=== PATIENT | male | born 1965 | race Two or more races ===

== ENCOUNTER 2017-05-21 18:42 | Emergency (ER) | payer MEDICAID ==
[~2017-05-21] VITALS: Ht 188 cm; Wt 104.3 kg
[~2017-05-21 18:42] MED LIST: UNOBMED
[2017-05-21] MEDS ORDERED: Mylanta II UD 30ml ORAL ONE (18:45)
[2017-05-21] MEDS ORDERED: Lidocaine 2% Visc 15ml soln ORAL ONE (18:45)
--- NOTE | 2017-05-21 18:49 | Emergency Room Report ---
History of Present Illness General Chief Complaint: Alcohol Intoxication Source: Patient, EMS Present Illness HPI 51YOM BIBEMS for ETOH, chest pain Drank "the whole store" worth of Susanna all day today because he "has pains in his feet" and susanna helps. EMS states they are always at his house for "him or his brother" drinking ETOH excessively Denies any drug use Had chest pain "all day, before I started drinking." States had some vomiting then substernal chest pain as well Questionable timeframe given patient very intoxicated currently Denies PMHx Denies taking medication Allergies: Coded Allergies: UNABLE TO ASSESS (Unverified , 10/08/14) Patient History Past Medical History: none Past Surgical History: none Pertinent Family History: none Social History: Reports: alcohol use Immunizations: UTD Reviewed Nursing Documentation: PMH: Agreed, PSxH: Agreed Nursing Documentation-PMH Hx Hypertension: Yes Review of Systems All Other Systems: negative except mentioned in HPI Physical Exam Vital Signs Date Time Temp Pulse Resp B/P (MAP) Pulse Ox O2 Delivery O2 Flow Rate FiO2 05/21/17 18:41 98.2 72 18 158/98 99 Room Air Sp02 EP Interpretation: reviewed, normal General Appearance: normal inspection, well appearing, no apparent distress, alert, GCS 15, non-toxic, other - +AOB Head: normocephalic, atraumatic Eyes: bilateral eye PERRL, bilateral eye EOMI ENT: normal ENT inspection, hearing grossly normal, normal voice Neck: normal inspection, full range of motion, supple, no bony tend Respiratory: normal inspection, lungs clear, normal breath sounds, no respiratory distress, no retraction, no accessory muscle use, no wheezing, speaking full sentences, chest symmetrical, palpation of chest normal Cardiovascular #1: regular rate, rhythm, no edema Gastrointestinal: normal inspection, normal bowel sounds, soft, no guarding, no hernia, other - TTP epigastrium Genitourinary: no CVA tenderness Musculoskeletal: normal inspection, back normal, normal range of motion, Maye' s Sign negative Neurologic: normal inspection, alert, oriented x3, responsive, analysis mgr III-XII nml as tested, motor strength/tone normal, speech normal Psychiatric: normal inspection, judgement/insight normal, mood/affect normal Skin: normal inspection, normal color, no rash Lymphatic: normal inspection Medical Decision Making Diagnostic Impression: Primary Impression: Acute alcoholic intoxication Qualified Codes: F10.929 - Alcohol use, unspecified with intoxication, unspecified Additional Impressions: Chest pain Qualified Codes: R07.9 - Chest pain, unspecified Epigastric pain Alcoholic gastritis Qualified Codes: K29.20 - Alcoholic gastritis without bleeding ER Course CXR negative for PTX, perforation/free air No ttp/ crepitus to chest Lungs CTAB ECG is NSR, no ischemia ETOH gastritis, given epigastric pain, daily ETOH improved with GI Cocktail Tolerating PO Observed in ER for 2 hours, patient slept No sober, ambulating with steady gait DC home EKG Diagnostic Results Rate: normal Rhythm: NSR ST Segments: no acute changes Rhythm Strip Diag. Results EP Interpretation: yes Rate: 75 Rhythm: NSR, no PVC's, no ectopy Chest X-Ray Diagnostic Results Chest X-Ray Diagnostic Results : Chest X-Ray Ordered: Yes # of Views/Limited/Complete: 1 View Indication: Chest Pain EP Interpretation: Yes Interpretation: no consolidation, no effusion, no pneumothorax, no acute cardiopulmonary disease Impression: No acute disease Electronically Signed by: Dr Javi Rubio MD Last Vital Signs Date Time Temp Pulse Resp B/P (MAP) Pulse Ox O2 Delivery O2 Flow Rate FiO2 05/21/17 18:41 98.2 72 18 158/98 99 Room Air Status: improved Disposition: HOME, SELF-CARE JAVI RUBIO M.D. May 21, 2017 18:49
[2017-05-21 20:43] VITALS: BP 126/86
[2017-05-21 21:28] VITALS: BP 126/86
--- NOTE | 2017-05-22 09:10 | Diagnostic Imaging Report ---
Indication: Chest pain Technique: XRAY CHEST 1 V Comparison: None. Findings: The cardiomediastinal silhouette is normal. The lungs are clear. There is no evidence of pleural fluid. The bones are unremarkable. Impression: Normal chest.
--- NOTE | 2017-05-24 18:44 | Cardiology Report ---
APPROVED REPORT EKG Measurement Heart [id number] Normal sinus rhythm Nonspecific ST abnormality Abnormal ECG
== END 2017-05-21 21:30 | disposition home or self-care (01) ==
LOC: EDBD 18:42 → EMR 19:15
DX: F10.129 Alcohol abuse with intoxication, unspecified (principal); R07.9 Chest pain, unspecified; K29.20 Alcoholic gastritis without bleeding
CPT/HCPCS: 71010; 93005; 99283

== ENCOUNTER 2017-11-28 21:01 | Emergency (ER) | payer MEDICAID ==
[~2017-11-28] VITALS: Ht 188 cm; Wt 102.1 kg
[2017-11-28 21:05] VITALS: BP 150/91
--- NOTE | 2017-11-28 21:06 | Emergency Room Report ---
History of Present Illness General Chief Complaint: Alcohol Intoxication Source: Patient, Medical Record, EMS Present Illness HPI This is a 52-year-old male with a history of colon abuse. He also has history of chronic pain for which she medicated with alcohol. Per EMS had been out to his placed multiple times. Patient called 911 because of generalized body pain. Also admitted to drinking heavily today. No fever chills but no nausea no vomiting. Pain is 10 out of 10. No other complaint. No trauma. No fever. Allergies: Coded Allergies: No Known Allergies (Unverified , 11/28/17) UNABLE TO ASSESS (Unverified , 10/08/14) Patient History Past Medical History: see triage record, old chart reviewed Past Surgical History: other Pertinent Family History: none Social History: Reports: alcohol use Immunizations: other Reviewed Nursing Documentation: PMH: Agreed, PSxH: Agreed Nursing Documentation-PMH Hx Hypertension: Yes Review of Systems Eye: Denies: eye pain, blurred vision ENT: Denies: ear pain, nose congestion, throat swelling Respiratory: Denies: cough, shortness of breath Cardiovascular: Denies: chest pain, palpitations Gastrointestinal: Denies: abdominal pain, diarrhea, nausea, vomiting Musculoskeletal: Reports: muscle pain, Denies: back pain, joint pain Skin: Denies: rash Neurological: Denies: headache, numbness Endocrine: Denies: increased thirst, increased urine Hematologic/Lymphatic: Denies: easy bruising All Other Systems: negative except mentioned in HPI Physical Exam Vital Signs Date Time Temp Pulse Resp B/P (MAP) Pulse Ox O2 Delivery O2 Flow Rate FiO2 11/28/17 20:56 97.4 95 16 160/93 94 Room Air 97.3 vitals with high blood pressure Sp02 EP Interpretation: reviewed, normal General Appearance: well appearing, no apparent distress, alert, other - Very intoxicated Head: normocephalic, atraumatic Eyes: bilateral eye PERRL, bilateral eye EOMI ENT: hearing grossly normal, normal pharynx Neck: full range of motion, supple, no meningismus Respiratory: chest non-tender, lungs clear, normal breath sounds Cardiovascular #1: regular rate, rhythm, no murmur Gastrointestinal: normal bowel sounds, non tender, no mass, no organomegaly, no bruit, non-distended Musculoskeletal: back normal, normal range of motion Neurologic: grossly normal Psychiatric: mood/affect normal Skin: warm/dry Medical Decision Making Diagnostic Impression: Primary Impression: Acute alcoholic intoxication Qualified Codes: F10.929 - Alcohol use, unspecified with intoxication, unspecified ER Course Patient presents with alcohol intoxication. He slept for one hour and now awake and walking around without any difficulty. Was to go home. No trauma to warrant x-ray or CT scan. Last Vital Signs Date Time Temp Pulse Resp B/P (MAP) Pulse Ox O2 Delivery O2 Flow Rate FiO2 11/28/17 20:56 97.4 95 16 160/93 94 Room Air 97.3 Status: improved Disposition: HOME, SELF-CARE Condition: Stable Patient Instructions: Alcohol Intoxication, [id number] Additional Instructions: Follow-up with your Dr. in 7 days. Return if symptom worsen. ARELIS OLSON M.D. Nov 28, 2017 21:06
[2017-11-28 21:40] VITALS: BP 150/91
== END 2017-11-28 21:40 | disposition home or self-care (01) ==
LOC: EDBD 21:01 → EMR 21:11
DX: F10.129 Alcohol abuse with intoxication, unspecified (principal)
CPT/HCPCS: 99283

== ENCOUNTER 2020-02-26 18:57 | Emergency (ER) | payer MEDICAID ==
[~2020-02-26] VITALS: Ht 188 cm; Wt 113.4 kg
--- NOTE | 2020-02-26 19:20 | NUR ---
ED Nurse Note: Pt denies any trauma or injury.
--- NOTE | 2020-02-26 19:20 | NUR ---
ED Nurse Note: Pt brought into ED by DARCY MOSQUEDA 26 for c/o bilat leg pain that radiates to L hip. Pt is breathing normal and unlabored. Pt is aaox4. NAD.
--- NOTE | 2020-02-26 19:22 | Emergency Room Report ---
History of Present Illness General Chief Complaint: Lower Extremity Injury Source: Patient Present Illness HPI Patient presents with complaints of left inguinal left hip pain He did appear somewhat inebriated with sluggish and slurring speech, and he does admit to drinking earlier today he does consider himself an alcoholic Denies any fall however he reports that he was stretching and doing exercises when the pain came on Denies any abdominal pain denies any testicular pain denies any rectal pain Pain is worse with standing and walking Allergies: Coded Allergies: No Known Allergies (Unverified , 11/28/17) COVID-19 Screening Contact w/high risk pt: No Recent Travel to affected area: No Experienced COVID-19 symptoms?: Yes COVID-19 symptoms experienced: Cough COVID-19 Testing performed HEALTHCARE CUSTOMER SERVICE: No Patient History Past Medical History: see triage record Reviewed Nursing Documentation: PMH: Agreed; PSxH: Agreed Nursing Documentation-PMH Hx Hypertension: Yes Review of Systems All Other Systems: negative except mentioned in HPI Physical Exam Vital Signs Date Time Temp Pulse Resp B/P (MAP) Pulse Ox O2 Delivery O2 Flow Rate FiO2 02/26/20 18:58 97.9 110 22 146/100 (115) 96 Room Air Sp02 EP Interpretation: reviewed, normal General Appearance: well appearing, no apparent distress Head: normocephalic, atraumatic Eyes: bilateral eye PERRL, bilateral eye EOMI ENT: hearing grossly normal, normal pharynx, TMs + canals normal, uvula midline Neck: full range of motion, supple, no meningismus, no bony tend Respiratory: lungs clear, normal breath sounds, no rhonchi, no respiratory distress, no retraction, no accessory muscle use Cardiovascular #1: normal peripheral pulses, regular rate, rhythm, no edema, no gallop, no JVD, no murmur Gastrointestinal: normal bowel sounds, non tender, soft, no mass, no organomegaly, non-distended, no guarding, no hernia, no pulsatile mass, no rebound Genitourinary: no CVA tenderness Musculoskeletal: other - Some reproducible discomfort at the left inguinal region patient is able to flex both hips Neurologic: oriented x3, sensory intact, responsive Psychiatric: mood/affect normal Lymphatic: normal inspection, no adenopathy Medical Decision Making Diagnostic Impression: Primary Impression: Groin strain ER Course Multiple differentials including but not limited to fracture, soft tissue injury , septic joint considered Patient is otherwise ambulatory and moving the hip well CT imaging shows nonspecific nonacute, findings patient will benefit from outpatient imaging such as MRI At this time consideration for septic joint is low Given the patient's mobility and stable for close outpatient follow-up CT/MRI/US Diagnostic Results CT/MRI/US Diagnostic Results : Impression Pelvic CTIMPRESSION: No acute fracture. Increased fluid in the left hip joint, correlate with synovitis/bursitis. Consider outpatient MRI of the pelvis. Last Vital Signs Date Time Temp Pulse Resp B/P (MAP) Pulse Ox O2 Delivery O2 Flow Rate FiO2 02/26/20 18:58 97.9 110 22 146/100 (115) 96 Room Air Status: improved Disposition: HOME, SELF-CARE Condition: Improved Scripts Ibuprofen* (MOTRIN*) 600 Mg Tablet 600 MG ORAL Q6H PRN for FOR PAIN, #20 TAB 0 Refills Prov: Ratna Lopez DO 02/26/20 Additional Instructions: Patient is provided with the discharge instructions notified to follow up with primary doctor in the next 2-3 days otherwise return to the er with any worsening symptoms. Please note that this report is being documented using [employer] technology. This can lead to erroneous entry secondary to incorrect interpretation by the dictating instrument. Ratna Lopez DO Feb 26, 2020 19:22
--- NOTE | 2020-02-26 20:13 | Diagnostic Imaging Report ---
EXAM: CT Pelvis Without Intravenous Contrast CLINICAL HISTORY: TRAUMA TECHNIQUE: Axial computed tomography images of the pelvis without intravenous contrast. CTDI is 8 mGy and DLP is 271 mGy-cm. One or more of the following dose reduction techniques were used: automated exposure control, adjustment of the mA and/or kV according to patient size, use of iterative reconstruction technique. COMPARISON: No relevant prior studies available. FINDINGS: Bones/joints: No acute fracture. No dislocation. Mild to moderate bilateral hip osteoarthrosis. Soft tissues: No hematoma. Colonic diverticulosis. There is increased fluid within the left hip joint. IMPRESSION: No acute fracture. Increased fluid in the left hip joint, correlate with synovitis/bursitis. Consider outpatient MRI of the pelvis.
[2020-02-26] MEDS ORDERED: IBUPROFEN600 M1 ORAL (21:05)
[2020-02-26 21:55] VITALS: BP 140/92
--- NOTE | 2020-02-26 21:55 | NUR ---
ER DISCHARGE NOTE: Patient is cleared to be discharged per ERMD, pt is aox4, on room air, with stable vital signs. pt was given dc and prescription instructions, pt was able to verbalize understanding, pt id band removed. pt is able to ambulate with steady gait. pt took all belongings.
== END 2020-02-26 21:55 | disposition home or self-care (01) ==
LOC: EDBD 18:57 → EMR 19:18
DX: M25.552 Pain in left hip (principal); I10 Essential (primary) hypertension; R05 Cough; M16.12 Unilateral primary osteoarthritis, left hip; K57.90 Diverticulosis of intestine, part unspecified, without perforation or abscess without bleeding
CPT/HCPCS: 72192; Z7502; 99284

== ENCOUNTER 2020-03-25 19:03 | Emergency (ER) | payer MEDICAID ==
[~2020-03-25] VITALS: Ht 182.9 cm; Wt 99.8 kg
[~2020-03-25 19:03] MED LIST changes: +IBUPROFEN600 M1 ORAL
[2020-03-25 19:28] VITALS: BP 156/104
[2020-03-25 20:05] LABS: ANION GAP 19 mmol/L (5-15); BLOOD UREA NITROGEN 11 mg/dL (7-18); CARBON DIOXIDE 24 MMOL/L (21-32); CHLORIDE 98 MMOL/L (98-107); CREATININE 1.2 MG/DL (0.55-1.30); POTASSIUM 3.5 MMOL/L (3.5-5.1); SODIUM 140 MMOL/L (136-145)
[2020-03-25 20:13] LABS: HEMATOCRIT 42.4 % (42.0-52.0); HEMOGLOBIN 14.6 G/DL (14.2-18.0); MEAN CORPUSCULAR VOLUME 107 FL (80-99); PLATELET COUNT 66 K/UL (150-450); RED BLOOD COUNT 3.98 M/UL (4.70-6.10); RED CELL DISTRIBUTION WIDTH 14.8 % (11.6-14.8); WHITE BLOOD COUNT 4.8 K/UL (4.8-10.8)
[2020-03-25 20:16] LABS: ALANINE AMINOTRANSFERASE 61 U/L (12-78); ALBUMIN 4.2 G/DL (3.4-5.0); ALKALINE PHOSPHATASE 92 U/L (46-116); ASPARTATE AMINO TRANSFERASE 165 U/L (15-37); BILIRUBIN,TOTAL 1.1 MG/DL (0.2-1.0); MONOCYTES % (AUTO) 12.3 % (1.0-10.0); NEUTROPHILS % (AUTO) 47.7 % (45.0-75.0)
[2020-03-25 20:17] LABS: BASOPHILS % (AUTO) 0.7 % (0.0-2.0); EOSINOPHILS % (AUTO) 1.4 % (0.0-3.0)
[2020-03-25 20:27] LABS: BILIRUBIN,DIRECT 0.1 MG/DL (0.0-0.3)
[2020-03-25 20:43] VITALS: BP 156/104
--- NOTE | 2020-03-25 22:04 | Emergency Room Report ---
History of Present Illness General Chief Complaint: Pain Source: Patient Present Illness HPI 54-year-old male presents to ED for evaluation. Brought in by EMS for generalized pain. From Street. Symptoms started today. Patient was admitted drinking alcohol. Also complained of some chest pain previously. Denies chest pain at this time. Denies shortness of breath. Denies abdominal pain. Denies nausea or vomiting. Denies drug use. No other aggravating relieving factors. Denies any other associated symptoms Allergies: Coded Allergies: No Known Allergies (Unverified , 11/28/17) COVID-19 Screening Contact w/high risk pt: No Recent Travel to affected area: No Experienced COVID-19 symptoms?: No COVID-19 symptoms experienced: Cough COVID-19 Testing performed ORIENTATION AND MOBILITY INSTRUCTOR: No Patient History Past Medical History: HTN Past Surgical History: none Pertinent Family History: none Social History: Denies: smoking, alcohol use, drug use Immunizations: UTD Reviewed Nursing Documentation: PMH: Agreed; PSxH: Agreed Nursing Documentation-PMH Hx Hypertension: Yes Review of Systems All Other Systems: negative except mentioned in HPI Physical Exam Vital Signs Date Time Temp Pulse Resp B/P (MAP) Pulse Ox O2 Delivery O2 Flow Rate FiO2 03/25/20 19:03 98.6 120 19 156/104 (121) 98 Room Air Sp02 EP Interpretation: reviewed, normal General Appearance: no apparent distress, alert, GCS 15, non-toxic Head: normocephalic, atraumatic Eyes: bilateral eye normal inspection, bilateral eye PERRL ENT: hearing grossly normal, normal pharynx, no angioedema, normal voice Neck: full range of motion, supple/symm/no masses Respiratory: chest non-tender, lungs clear, normal breath sounds, speaking full sentences Cardiovascular #1: regular rate, rhythm, no edema Cardiovascular #2: 2+ carotid (R), 2+ carotid (L), 2+ radial (R), 2+ radial (L) , 2+ dorsalis pedis (R), 2+ dorsalis pedis (L) Gastrointestinal: normal bowel sounds, non tender, soft, non-distended, no guarding, no rebound Rectal: deferred Genitourinary: normal inspection, no CVA tenderness Musculoskeletal: back normal, normal range of motion, gait/station normal, non- tender Neurologic: alert, motor strength/tone normal, oriented x3, sensory intact, responsive, speech normal Psychiatric: judgement/insight normal, memory normal, mood/affect normal, no suicidal/homicidal ideation Reflexes: 3+ bicep (R), 3+ bicep (L), 3+ tricep (R), 3+ tricep (L), 3+ knee (R) , 3+ knee (L) Lymphatic: no adenopathy Medical Decision Making Diagnostic Impression: Primary Impression: Acute alcoholic intoxication Qualified Codes: F10.929 - Alcohol use, unspecified with intoxication, unspecified ER Course Hospital Course 54-year-old M presents ED complaining of generalized pain, ? cheast pain, h/o ETOH Differential diagnoses include: Rib fracture, GA/unstable angina, contusion, muscle strain Clinical course Patient placed on stretcher. After initial history and physical I ordered labs , EKG, IVFs labs reviewed- all electrolytes normal, troponins negative, no leukocytosis, hemoglobin/hematocrit stable, ETOH elevated EKG - NSR no acute ischemic changes interpreted by me On reassessment patient clinically sober. Walking with steady gait. I discussed findings with patient. Safe for discharge with close outpatient follow-up. I will provide referrals I. I feel this is a highly complex case requiring extensive working including EKG/Rhythm strip, Xray/CT/US, Blood/urine lab work, repeat exams while in ED, and administration of strong opiates/narcotics for pain control, admission to hospital or close patient follow up. Diagnosis -acute alcoholic intoxication Stable and discharged to home. Instructed to followup with PMD. Return to ED if symptoms recur or worsen Labs Test 03/25/20 19:39 White Blood Count 4.8 K/UL (4.8-10.8) Red Blood Count 3.98 M/UL (4.70-6.10) Hemoglobin 14.6 G/DL (14.2-18.0) Hematocrit 42.4 % (42.0-52.0) Mean Corpuscular Volume 107 FL (80-99) Mean Corpuscular Hemoglobin 36.7 PG (27.0-31.0) Mean Corpuscular Hemoglobin Concent 34.5 G/DL (32.0-36.0) Red Cell Distribution Width 14.8 % (11.6-14.8) Platelet Count 66 K/UL (150-450) Mean Platelet Volume 11.4 FL (6.5-10.1) Neutrophils (%) (Auto) 47.7 % (45.0-75.0) Lymphocytes (%) (Auto) 38.0 % (20.0-45.0) Monocytes (%) (Auto) 12.3 % (1.0-10.0) Eosinophils (%) (Auto) 1.4 % (0.0-3.0) Basophils (%) (Auto) 0.7 % (0.0-2.0) Sodium Level 140 MMOL/L (136-145) Potassium Level 3.5 MMOL/L (3.5-5.1) Chloride Level 98 MMOL/L (98-107) Carbon Dioxide Level 24 MMOL/L (21-32) Anion Gap 19 mmol/L (5-15) Blood Urea Nitrogen 11 mg/dL (7-18) Creatinine 1.2 MG/DL (0.55-1.30) Estimat Glomerular Filtration Rate > 60 mL/min (>60) Glucose Level 117 MG/DL (74-106) Calcium Level 9.0 MG/DL (8.5-10.1) Total Bilirubin 1.1 MG/DL (0.2-1.0) Direct Bilirubin 0.1 MG/DL (0.0-0.3) Aspartate Amino Transf (AST/SGOT) 165 U/L (15-37) Alanine Aminotransferase (ALT/SGPT) 61 U/L (12-78) Alkaline Phosphatase 92 U/L (46-116) Troponin I 0.000 ng/mL (0.000-0.056) Total Protein 8.3 G/DL (6.4-8.2) Albumin 4.2 G/DL (3.4-5.0) Globulin 4.1 g/dL Albumin/Globulin Ratio 1.0 (1.0-2.7) Salicylates Level 1.8 ug/mL (2.8-20) Acetaminophen Level < 2 MCG/ML (10-30) Serum Alcohol 399 mg/dL EKG Diagnostic Results Rate: normal Rhythm: NSR ST Segments: no acute changes ASA given to the pt in ED: No Rhythm Strip Diag. Results EP Interpretation: yes Rhythm: NSR, no PVC's, no ectopy Last Vital Signs Date Time Temp Pulse Resp B/P (MAP) Pulse Ox O2 Delivery O2 Flow Rate FiO2 03/25/20 20:43 98.6 87 19 156/104 98 Room Air Status: improved Disposition: HOME, SELF-CARE Condition: Stable Referrals: [facility]ERR[facility] (PCP) [facility] Patient Instructions: Alcohol Intoxication, [id number] Samm Goddard MD Mar 25, 2020 22:04
--- NOTE | 2020-03-26 15:53 | Diagnostic Imaging Report ---
Indication: Chest pain Technique: One view of the chest Comparison: 05/21/2017 Findings: Lungs and pleural spaces are clear. Heart size is normal. There is no significant interim change Impression: No acute process
== END 2020-03-25 20:43 | disposition home or self-care (01) ==
LOC: EDBD 19:03 → EMR 20:39
DX: F10.129 Alcohol abuse with intoxication, unspecified (principal); I10 Essential (primary) hypertension
CPT/HCPCS: 71045; 80053; 82248; 84484; 85025; 93005; 96360; G0480; G0481; J7030; Z7502; 99284